=== PATIENT | male | born 1970 | race Caucasian/White ===

== ENCOUNTER → 2021-06-28 11:02 | Outpatient (CLI) | payer BC, SELFPAY ==
--- NOTE | ~2021-06-28 | MR_ITS ---
EXAMINATION: MR brain/brain stem wo con DATE: 06/28/2021 12:17 INDICATION: Anesthesia of skin. Bilateral leg numbness and tingling. TECHNIQUE: Magnetic resonance imaging (MRI) of the brain and brainstem was performed without intraven ous contrast. Sequences included sagittal and axial T1-weighted FSE, axial diffusion-weighted FS EPI, axial T2*-weighted GRE, axial T2-weighted FLAIR Propeller, sagittal T2-weighted FLAIR, and axial T2- weighted Propeller. Apparent diffusion coefficient (ADC) maps were created. COMPARISON: None. FINDINGS: There is no intracranial hemorrhage, acute infarction, or abnormal intracranial mass lesion . The ventricles are normal in size. There is mild mucosal thickening in the paranasal sinuses. The o rbits are normal. The mastoid air cells are normal. IMPRESSION: 1. Normal brain. Reviewed, dictated and finalized at location A. IMPRESSION: 1. Normal brain.
== END ==
PROVIDERS: PCP Family Medicine; Visit Provider Family Medicine
DX: R20.0 Anesthesia of skin (principal)
CPT/HCPCS: 70551

== ENCOUNTER → 2022-07-07 10:18 | Outpatient (CLI) | payer BC, SELFPAY ==
--- NOTE | ~2022-07-07 | US_ITS ---
US abdomen limited INDICATION: Hyperlipidemia. PROCEDURE: Realtime right upper abdominal ultrasound. COMPARISON: No prior studies for comparison. FINDINGS: The pancreas is normal without focal mass or pancreatic ductal dilation. Liver echotexture is increased, consistent with fatty infiltration. There is normal directional flow in the portal ve in. Gallbladder wall is thickened measuring 7 mm. No definite gallstones or pericholecystic fluid. Commo n bile duct measures 4 mm. No sonographic Thomas's sign. Right renal echotexture is grossly unremark able. Right kidney measures 13.6 cm. IMPRESSION: 1: Gallbladder wall thickening. This could indicate interstitial edema, chronic liver disease or geology instructor abel cholecystitis. 2: Hepatic steatosis. Reviewed, dictated and finalized at location B. IMPRESSION: 1: Gallbladder wall thickening. This could indicate interstitial edema, chronic liver disease or chronic cholecystitis. 2: Hepatic steatosis.
== END ==
PROVIDERS: PCP Family Medicine; Visit Provider Nurse Practitioner Family
DX: E78.5 Hyperlipidemia, unspecified (principal); R93.89 Abnormal findings on diagnostic imaging of other specified body structures; K76.0 Fatty (change of) liver, not elsewhere classified
CPT/HCPCS: 76705

== ENCOUNTER → 2023-03-26 13:45 | Outpatient (CLI) | payer BC, SELFPAY ==
--- NOTE | ~2023-03-26 | XR_ITS ---
EXAM: XR knee LT min 4V DATE: 03/26/2023 14:05 HISTORY: M25.562 - Pain in left knee . COMPARISON: None available. FINDINGS: Normal mineralization. No fracture or dislocation. No lytic or blastic lesion. Mild medial joint space narrowing. Mild tricompartmental osteophytosis. Trace left knee joint effusion. No erosi on or periosteal change. Soft tissues within normal limits. IMPRESSION: Mild tricompartmental left knee osteoarthritis. Reviewed, dictated and finalized at location K.
== END ==
PROVIDERS: PCP Family Medicine; Visit Provider Family Medicine
DX: M17.12 Unilateral primary osteoarthritis, left knee (principal)
CPT/HCPCS: 73564

== ENCOUNTER → 2023-08-04 08:16 | Outpatient (CLI) | payer BC, SELFPAY ==
--- NOTE | ~2023-08-04 | US_ITS ---
US abdomen limited DATE: 08/04/2023 09:15 INDICATION: Nonalcoholic liver disease TECHNIQUE: Real-time imaging of liver, pancreas, gallbladder COMPARISON: 07/07/2022 gallbladder ultrasound examination FINDINGS: Increased echogenicity of the liver suggests hepatic steatosis. No hepatic or pancreatic sp edyta-occupying mass lesion is evident. Normal hepatopedal portal venous flow direction. No gallstones or gallbladder wall thickening are noted. Negative sonographic Thomas's sign. The common bile duct measures 4 mm, within normal range. Spleen measures within upper limits of normal size. IMPRESSION: Hepatic steatosis Reviewed, dictated and finalized at Location A. Reviewed, dictated and finalized at location A. IMPRESSION: Hepatic steatosis
== END ==
PROVIDERS: PCP Family Medicine
DX: K76.0 Fatty (change of) liver, not elsewhere classified (principal)
CPT/HCPCS: 76705

== ENCOUNTER 2023-11-12 09:23 | Outpatient (CLI) | payer BC, SELFPAY ==
--- NOTE | ~2023-11-12 | US_ITS ---
EXAMINATION: US_VDOPREFBI_US DATE: 11/12/2023 11:01 INDICATION: Lymphedema, not elsewhere classified. TECHNIQUE: Grayscale ultrasound images without and with compression and Doppler ultrasound images of the bilateral lower extremity veins were obtained. COMPARISON: None. FINDINGS: The visualized portions of right common femoral vein, profunda (deep) femoral vein, femoral vein, pop liteal vein, peroneal veins, and posterior tibial veins are patent. Right greater saphenous vein larissa ures 5 mm in the upper thigh, 4 mm in the lower thigh, and 3 mm in the calf. No reflux. Right small s aphenous vein measures 1 mm in the upper calf and 1 mm in the lower calf and demonstrates 1.5 seconds reflux in the lower calf. The visualized portions of left common femoral vein, profunda femoral vein, femoral vein, popliteal v ein, peroneal veins, and posterior tibial veins are patent. Left greater saphenous vein measures 7 mm in the upper thigh, 5 mm in the lower thigh, and 5 mm in the calf. There is 0.9 seconds reflux in th e lower thigh and 1.1 seconds reflux in the calf. Left small saphenous vein measures 4 mm in the uppe r calf and 4 mm in the lower calf and demonstrates 0.5 seconds reflux in the upper calf and lower abhijit f. IMPRESSION: 1. Reflux in the left greater saphenous vein and bilateral small saphenous veins. Reviewed, dictated and finalized at location A. X SECURITY ADMINISTRATOR IMPRESSION: 1. Reflux in the left greater saphenous vein and bilateral small saphenous vei ns.
== END 2023-11-12 09:24 | disposition home or self-care (01) ==
PROVIDERS: PCP Family Medicine; Visit Provider Family Medicine
DX: I83.892 Varicose veins of left lower extremity with other complications (principal); I89.0 Lymphedema, not elsewhere classified
CPT/HCPCS: 93970

== ENCOUNTER 2024-09-23 15:04 | Outpatient (CLI) | payer BC, SELFPAY ==
--- NOTE | ~2024-09-23 | XR_ITS ---
XR foot LT 2V Ordering provider: Doreen Marte NP History: . M79.696 - Pain in left foot . Comparison: None. FINDINGS: BONES: No definite acute fracture or dislocation. Calcaneal spur. Ossification of the plantar fascia is possible. Lucency seen medially in the navicula r bone is most likely summation shadow. Clinical correlation for tenderness and follow-up advised JOINT SPACES: Normal. No tarsal coalition. SOFT TISSUES: Normal. IMPRESSION: No definite acute osseous abnormality left foot. Possible ossification in the plantar fascia. Possible lucency in the medial aspect of the navicular bone. Follow-up advised. Reviewed, dictated and finalized at location A. SHIPMENT CLERK
== END 2024-09-23 15:05 | disposition home or self-care (01) ==
LOC: MICIMG 15:05
PROVIDERS: PCP Family Medicine; Visit Provider Family Medicine
DX: M79.672 Pain in left foot (principal)
CPT/HCPCS: 73620